=== PATIENT | female | born 2000 | race Caucasian/White ===

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

== ENCOUNTER 2020-01-12 12:19 | Emergency (ER) | payer OTHER ==
[~2020-01-12] VITALS: Ht 162.6 cm; Wt 56.7 kg
[2020-01-12 12:59] VITALS: Ht 162.6 cm; Wt 56.7 kg
[2020-01-12 14:49] VITALS: BP 125/59
== END 2020-01-12 14:49 | disposition home or self-care (01) ==
LOC: ED 12:19
DX: F11.23 Opioid dependence with withdrawal (principal)